=== PATIENT | male | born 1985 | race Caucasian/White ===

== ENCOUNTER 2017-03-05 06:47 | Emergency (ER) | payer BC ==
[~2017-03-05] VITALS: Ht 180.3 cm; Wt 81.6 kg
[2017-03-05 06:50] VITALS: BP_SYST 121
[2017-03-05] MEDS ORDERED: LEVO125T PO (06:57)
[2017-03-05] MEDS ORDERED: VITD2000 PO (06:58)
[2017-03-05] MEDS ORDERED: EZET10TA PO (06:58)
[2017-03-05] MEDS ORDERED: NACL 0.9% 1,000 ML IV ONE ×2 (07:03→09:45)
[2017-03-05] MEDS ORDERED: KETOROLAC TROMETHAMINE 30 MG VIAL IVP ONE (07:15)
[2017-03-05 07:23] LABS: BASOPHILS % (AUTO) 0.7 % (0.0-2.0); EOSINOPHILS # (AUTO) 0.1 K/uL (0.0-0.4); EOSINOPHILS % (AUTO) 2.4 % (0.0-4.0); HEMATOCRIT 43.1 % (36-54); HEMOGLOBIN 14.1 g/dL (14.0-18.0); LYMPHOCYTES # (AUTO) 3.1 K/uL (1.0-5.5); LYMPHOCYTES % (AUTO) 48.1 % (20.5-51.5); MEAN CORPUSCULAR HEMOGLOBIN 29 pg (27-31); MEAN CORPUSCULAR HGB CONC 33 % (32-36); MEAN CORPUSCULAR VOLUME 88 fL (79.0-98.0); MONOCYTES # (AUTO) 0.6 K/uL (0.0-1.0); MONOCYTES % (AUTO) 10.4 % (1.7-9.3); NEUTROPHILS # (AUTO) 2.3 K/uL (1.8-7.7); NEUTROPHILS % (AUTO) 38.4 % (40.0-70.0); PLATELET COUNT (AUTO) 311 K/uL (130-430); RED BLOOD CELL COUNT(AUTO) 4.91 MIL/uL (4.2-6.2); RED CELL DISTRIBUTION WIDTH 12.6 % (9.0-15.0); WHITE BLOOD COUNT (AUTO) 6.1 K/uL (4.8-10.8)
[2017-03-05] MEDS ORDERED: MORPHINE 2 MG/ML INJ. SYRINGE IVP ONE (07:30)
[2017-03-05] MEDS ORDERED: ONDANSETRON HCL 4 MG/2 ML VIAL IVP ONE (07:30)
[2017-03-05 07:39] LABS: PROTHROMBIN TIME 11.3 SECS (9.5-12.5)
[2017-03-05 07:48] LABS: CALCIUM 9.7 mg/dL (8.4-11.0); CREATININE 1.21 mg/dL (0.55-1.30); POTASSIUM 3.5 mmol/L (3.5-5.1)
[2017-03-05 07:53] LABS: ALBUMIN 4.2 g/dL (3.4-4.8); TOTAL BILIRUBIN 0.5 mg/dL (0.0-1.0); TOTAL PROTEIN, SERUM 7.5 g/dL (6.4-8.3)
[2017-03-05 08:07] LABS: BILIRUBIN,URINE NEGATIVE (NEGATIVE); BLOOD, URINE 3+ (NEGATIVE); CLARITY/URINE SL CLOUDY (CLEAR); COLOR,URINE YELLOW (YELLOW); GLUCOSE,URINE NEGATIVE (NEGATIVE); KETONES,URINE TRACE (NEGATIVE); LEUKOCYTE ESTERASE ,URINE NEGATIVE (NEGATIVE); NITRITE, URINE NEGATIVE (NEGATIVE); PROTEIN URINE NEGATIVE (NEGATIVE); UROBILINOGEN,URINE 0.2 (0.2-1.0)
[2017-03-05] MEDS ORDERED: MORPHINE 4 MG/ML INJ. SYRINGE IVP ONE (08:15)
[2017-03-05 08:23] LABS: RBC,URINE >100 /HPF (0-3); WBC,URINE 0-3 /HPF (0-3)
[2017-03-05 08:24] LABS: BACTERIA,URINE FEW /HPF (None Seen); MUCUS,URINE None Seen /LPF (None Seen)
[2017-03-05] MEDS ORDERED: MORPHINE SULFATE 10 MG/ML VIAL IVP ONE (09:00)
[2017-03-05] MEDS ORDERED: MAGNESIUM CITRATE 300 ML ORAL SOLUTION PO ONE (10:15)
[2017-03-05 10:46] VITALS: BP_SYST 126
== END 2017-03-05 10:46 | disposition home or self-care (01) ==
LOC: SED 06:47
DX: N20.1 Calculus of ureter (principal); R03.0 Elevated blood-pressure reading, without diagnosis of hypertension
CPT/HCPCS: 36415; 74176; 80053; 81000; 85025; 85610; 85730; 96361; 96374; 96375; 96376; 99285; J1885; J2270 ×3; J2405; J7030

== ENCOUNTER 2019-05-05 03:21 | Inpatient (IN) | payer BC ==
[2019-05-05] VITALS (7 sets, daily range): BP systolic 104–151
[~2019-05-05] VITALS: Ht 180.3 cm; Wt 81.6 kg
[~2019-05-05 03:21] MED LIST: EZET10TA PO; LEVO125T PO; VITD2000 PO
--- NOTE | 2019-05-05 03:42 | NUR ---
Pt came in with a complaint of right lower quadrant sharp abdominal pain. Denies nausea, headache, shortness of breath and no fever noted. Pt stated he took laxative for constpation but apparently it didnt work well for him. No medical history noted. Safety precaution observed, will continue to monitor pt.
--- NOTE | 2019-05-05 03:42 | NUR ---
Pt placed to bed 8, side rails up.
--- NOTE | 2019-05-05 04:00 | NUR ---
ER MD Mcmanus at bedside for medical evaluation.
[2019-05-05] MEDS ORDERED: NACL 0.9% 1,000 ML IV ONE (04:15)
[2019-05-05] MEDS ORDERED: MORPHINE 4 MG/ML INJ. SYRINGE IVP ONE (04:15)
--- NOTE | 2019-05-05 04:32 | NUR ---
Pt to CT
[2019-05-05 04:40] LABS: BASOPHILS % (AUTO) 0.3 % (0.0-2.0); EOSINOPHILS # (AUTO) 0.1 K/uL (0.0-0.4); EOSINOPHILS % (AUTO) 1.4 % (0.0-4.0); HEMATOCRIT 44.6 % (36-54); LYMPHOCYTES # (AUTO) 2.3 K/uL (1.0-5.5); LYMPHOCYTES % (AUTO) 27.2 % (20.5-51.5); MEAN CORPUSCULAR HEMOGLOBIN 30 pg (27-31); MEAN CORPUSCULAR HGB CONC 34 % (32-36); MEAN CORPUSCULAR VOLUME 89 fL (79.0-98.0); MONOCYTES # (AUTO) 0.8 K/uL (0.0-1.0); MONOCYTES % (AUTO) 9.5 % (1.7-9.3); NEUTROPHILS # (AUTO) 5.2 K/uL (1.8-7.7); NEUTROPHILS % (AUTO) 61.6 % (40.0-70.0); PLATELET COUNT (AUTO) 223 K/uL (130-430); RED BLOOD CELL COUNT(AUTO) 4.99 MIL/uL (4.2-6.2); RED CELL DISTRIBUTION WIDTH 13.5 % (9.0-15.0); WHITE BLOOD COUNT (AUTO) 8.4 K/uL (4.8-10.8)
--- NOTE | 2019-05-05 04:40 | NUR ---
Pt back from CT
[2019-05-05 04:50] LABS: CALCIUM 9.4 mg/dL (8.4-11.0); CREATININE 1.06 mg/dL (0.55-1.30); POTASSIUM 3.6 mmol/L (3.5-5.1)
[2019-05-05 04:56] LABS: ALBUMIN 3.9 g/dL (3.4-4.8); TOTAL BILIRUBIN 0.4 mg/dL (0.0-1.0)
[2019-05-05] MEDS ORDERED: PIPERACILLIN/TAZO 3.375 GM in NS 50 ML IV ONE (05:15)
[2019-05-05 05:18] LABS: BILIRUBIN,URINE NEGATIVE (NEGATIVE); BLOOD, URINE NEGATIVE (NEGATIVE); CLARITY/URINE CLEAR (CLEAR); COLOR,URINE YELLOW (YELLOW); GLUCOSE,URINE NEGATIVE (NEGATIVE); KETONES,URINE NEGATIVE (NEGATIVE); LEUKOCYTE ESTERASE ,URINE NEGATIVE (NEGATIVE); NITRITE, URINE NEGATIVE (NEGATIVE); PROTEIN URINE NEGATIVE (NEGATIVE); UROBILINOGEN,URINE 0.2 (0.2-1.0)
[2019-05-05] MEDS ORDERED: PIPERACILLIN/TAZOBACTAM 3.375 GM/VIAL (ZOSYN) IV ONE (05:24)
--- NOTE | 2019-05-05 05:30 | NUR ---
Pt in bed, no acute distress at this time. Will continue to monitor Pt.
[2019-05-05] MEDS ORDERED: MAGN100T3 PO (05:41)
--- NOTE | 2019-05-05 07:30 | NUR ---
Patient resting quietly. No acute distress noted. Vital signs within normal range.
[2019-05-05] MEDS ORDERED: fentaNYL CITRATE/PF 100 MCG/2 ML AMP IVP ONE (08:00)
[2019-05-05] MEDS ORDERED: NS IRRIG SOLN 1000 ML IR ONE (08:00)
[2019-05-05] MEDS ORDERED: MIDAZOLAM HCL 5 MG/5 ML VIAL IVP ONE (08:00)
[2019-05-05] MEDS ORDERED: SEVOFLURANE 15 MIN GAS INH ONE (08:00)
[2019-05-05] MEDS ORDERED: BUPIVACAINE /PF 0.5% 30 ML VIAL INJ ONE (08:00)
[2019-05-05] MEDS ORDERED: BUPIVACAINE /EPINEPHRINE/PF 0.25% 30 ML VIAL INJ ONE (08:00)
[2019-05-05] MEDS ORDERED: ROCURONIUM BROMIDE 10 MG/ML (ZEMURON) IV ONE (08:00)
[2019-05-05] MEDS ORDERED: LIDOCAINE/EPI 2% 1:100000 20 ML VIAL INJ ONE (08:00)
[2019-05-05] MEDS ORDERED: LR 1,000 ML IV.SOLN IV ONE (08:00)
[2019-05-05] MEDS ORDERED: GLYCOPYRROLATE 0.2 MG/ML VIAL IJ ONE (08:00)
[2019-05-05] MEDS ORDERED: PROPOFOL 200MG/ 20ML VIAL (DIPRIVAN) IV ONE (08:00)
[2019-05-05] MEDS ORDERED: NEOSTIGMINE METHYLSULFATE 1 MG/ML, 10 ML VIAL IVP ONE (08:00)
--- NOTE | 2019-05-05 08:00 | NUR ---
PT transferred via gurney to OR. PT was accompanied by two RN.
[2019-05-05 08:19] LABS: PROTHROMBIN TIME 10.3 SECS (9.5-12.5)
[2019-05-05] MEDS ORDERED: fentaNYL CITRATE/PF 100 MCG/2 ML AMP IVP PRN (08:45)
[2019-05-05] MEDS ORDERED: ONDANSETRON HCL 4 MG/2 ML VIAL IVP PRN ×2 (08:45→11:45)
[2019-05-05] MEDS ORDERED: KETOROLAC TROMETHAMINE 30 MG VIAL IVP PRN (08:45)
[2019-05-05] MEDS ORDERED: ONDANSETRON HCL 4 MG/2 ML VIAL ONE (09:47)
[2019-05-05] MEDS ORDERED: fentaNYL CITRATE/PF 100 MCG/2 ML AMP ONE (09:54)
--- NOTE | 2019-05-05 10:20 | NUR ---
Opening notes, Received pt from PACU, pt is drowsy but arousable to voice, spouse at bedside. c/o of pain 06/08, stated that he feels shitty after getting the pain medication in PACU. no bleeding on the surgical sites. dressing is clean/dry and intact. Pt able to do deep breathing, refused to do the Incentive Spirometry. Will check other medications to give. will cont to monitor.
--- NOTE | 2019-05-05 10:24 | NUR ---
Consult called: for Dr. Sarika Stinson, regarding medical management, ordered by Dr. Malone, spoke with Perlita.
--- NOTE | 2019-05-05 10:42 | NUR ---
Paged Dr SANDOVAL for pain meds order.
[2019-05-05] MEDS ORDERED: MORPHINE 4 MG/ML INJ. SYRINGE IVP PRN (11:45)
[2019-05-05] MEDS ORDERED: HYDROcodone/ACETAMIN 10-325 MG TAB PO PRN (11:45)
[2019-05-05] MEDS ORDERED: HYDROcodone/ACETAMIN 5-325 MG TAB (NORCO/ VICODIN) PO PRN (11:45)
[2019-05-05] MEDS ORDERED: MORPHINE 2 MG/ML INJ. SYRINGE IVP PRN (11:45)
[2019-05-05] MEDS ORDERED: ACETAMINOPHEN 325 MG TABLET PO PRN (11:45)
[2019-05-05] MEDS ORDERED: LORazepam 2 MG/ML VIAL IVP PRN (11:45)
[2019-05-05] MEDS: D5/0.45 NS 1,000 ML IV SCH ×2 (11:58→23:08)
--- NOTE | 2019-05-05 13:32 | NUR ---
PT IN BED, PT TALKING TO VISITOR AT BEDSIDE. STATED THAT HIS PAIN IS MUCH BETTER AT THIS TIME. WILL CONT TO MONITOR.
--- NOTE | 2019-05-05 16:34 | NUR ---
PT AMBULATED IN THE [address], PAIN IS TOLERABLE. PT VOIDED.
--- NOTE | 2019-05-05 18:12 | NUR ---
CLOSING NOTES PT HAS BEEN STABLE THE WHOLE SHIFT, VITALS WNL. NO FEVER. PT HAD GOOD PAIN RELIEF. PT AMBJULATED AND VOIDED POST SRGERY. WILL ENDORSED TO NIGHT RN.
--- NOTE | 2019-05-05 19:42 | NUR ---
OPENING NOTE Received patient awake, AOx4 in no sign of distress. Presently he is sitting upright in bed looking at personal lap top and talking with family visiting at bedside. IV is to LAC and has IVF infusing at 100 ml/hr. Nonlabored breathing on room air. Bed is locked to lowest position. Instructed on use of call light, updated board. He requested tooth brush and toiletries and they were provided.
--- NOTE | 2019-05-05 20:10 | NUR ---
Rounds / Incentive spirometer Patient is sitting on chair talking with visitors, no sign of distress noted. VSS - B/P is 122/80 and HR 60. Presently reports pain is tolerable and declines pain or nausea medication. He has been ambulating and tolerating clear liquids. He was instructed on use of incentive spirometer and demonstrated inspiration of 1000. IVF infusing as ordered. Will monitor.
--- NOTE | 2019-05-05 21:20 | NUR ---
Ambulating Patient ambulating in hallway with steady gait, accompanied by . He asked for new pair of socks for bed and they were provided. Will monitor.
--- NOTE | 2019-05-05 23:10 | NUR ---
IVF IVF bag is complete and hung new IV fluid bag as ordered. IVF infusing at 100 ml/ hr. Patient ambulated to the restroom and returned to bed. SCD's on and lights are off. He has no further needs. Will monitor.
[2019-05-06 01:15] VITALS: BP_SYST 137
--- NOTE | 2019-05-06 02:38 | NUR ---
Rounds Patient is sleeping, no sign of distress noted. IVF infusing well. Bed locked to lowest position and call light w/in reach. Will monitor.
--- NOTE | 2019-05-06 04:47 | NUR ---
Rounds Patient is sleeping, no sign of distress noted. Symmetrical rise and fall of chest. IVF infusing well. Bed locked to lowest position and call light w/in reach. Will monitor.
[2019-05-06 06:39] LABS: BASOPHILS % (AUTO) 0.2 % (0.0-2.0); EOSINOPHILS % (AUTO) 0.3 % (0.0-4.0); HEMATOCRIT 39.5 % (36-54); HEMOGLOBIN 13.4 g/dL (14.0-18.0); LYMPHOCYTES # (AUTO) 1.3 K/uL (1.0-5.5); LYMPHOCYTES % (AUTO) 18.7 % (20.5-51.5); MEAN CORPUSCULAR HEMOGLOBIN 30 pg (27-31); MEAN CORPUSCULAR HGB CONC 34 % (32-36); MEAN CORPUSCULAR VOLUME 88 fL (79.0-98.0); MONOCYTES # (AUTO) 0.8 K/uL (0.0-1.0); MONOCYTES % (AUTO) 10.8 % (1.7-9.3); PLATELET COUNT (AUTO) 202 K/uL (130-430); RED BLOOD CELL COUNT(AUTO) 4.46 MIL/uL (4.2-6.2); RED CELL DISTRIBUTION WIDTH 13.4 % (9.0-15.0); WHITE BLOOD COUNT (AUTO) 7.2 K/uL (4.8-10.8)
--- NOTE | 2019-05-06 06:48 | NUR ---
CLOSING NOTE Patient was given due medication. He denies nausea and was informed his diet was advanced to full liquid for breakfast. Presently reports pain as tolerable and declines any request for pain medication, he said he is avoid pain medication as much as possible. IVF infusing well. SCD's on. Needs met throughout shift. Will endorse care to oncoming nurse.
[2019-05-06 06:59] LABS: ALBUMIN 3.2 g/dL (3.4-4.8); CALCIUM 9.3 mg/dL (8.4-11.0); CREATININE 0.96 mg/dL (0.55-1.30); POTASSIUM 3.9 mmol/L (3.5-5.1); TOTAL BILIRUBIN 0.6 mg/dL (0.0-1.0)
[2019-05-06] MEDS ORDERED: LEVOTHYROXINE SODIUM 0.125 MG TABLET PO SCH (07:00)
[2019-05-06 07:22] LABS: ERYTHROCYTE SEDIMENTATION RATE 12 MM/HR (0-15)
--- NOTE | 2019-05-06 07:32 | NUR ---
OPENING NOTED Patient resting in the bed. No acute distress. AAO x 4. Denied of pain. Skin warm and dry to touch. IV intact to LAC, no redness, no swelling, no drainage. On D5 1/2NS at 100ml/hr, infusing well. On s/p lap appendectomy, abdomen incision sites x 3, covered with clean an dry dressing, no bleeding, no drainage, no odor. at bedside. Discussed the safety issue, use call light when needs help, and plan of care, verbally understanding. Safety measure maintained. Bed locked in low position, side rails up. Refused bed alarm, risk and benefit explained, verbally understanding. Call light within reached. Will continue to monitor.
[2019-05-06 07:55] VITALS: BP_SYST 128
--- NOTE | 2019-05-06 08:40 | NUR ---
SEEN AND EXAMINED BY MARY HARRIS WITH ORDER OF DISCHARGE HOME AND PRESCRIPTION OF NORCO.
[2019-05-06] MEDS ORDERED: HYDR-4272 PO ×2 (08:45→09:11)
[2019-05-06] MEDS ORDERED: CHOLECALCIFEROL (VITAMIN D3) 2,000 UNIT TABLET PO SCH (09:00)
[2019-05-06] MEDS ORDERED: EZETIMIBE 10 MG TABLET PO SCH (09:00)
--- NOTE | 2019-05-06 09:07 | NUR ---
SEEN AND EXAMINED BY SOCORRO AVILES.
[2019-05-06 09:10] VITALS: BP_SYST 123
--- NOTE | 2019-05-06 09:56 | NUR ---
Nutrition Update Kishan Scale 15 noted. Pt admitted for acute appendicitis. Diet: full liquid BMI: 25.1 kg/m2 RD to follow per nutrition care standards.
--- NOTE | 2019-05-06 10:05 | NUR ---
D/C Patient Patient given medication reconciliation form and D/C instructions. Exit Care provided. Patient verbalized understanding. MD discussed with patient the results and treatment provided. Ambulatory with steady gait for discharge to home. Patient in stable condition, ID band removed. IV catheter removed, intact and dressing applied, no active bleeding. Rx of [place] given. Patient educated on pain management, and follow up appointment. All belongings sent with patient.
== END 2019-05-06 10:05 | disposition home or self-care (01) | DRG 343 ==
LOC: SED 03:21 → SMU 08:00
PROVIDERS: ADMIT Surgery; ATTEND Surgery
PROC: 0DTJ4ZZ Resection of Appendix, Percutaneous Endoscopic Approach (ICD-10-PCS; principal; 2019-05-05 08:05)
DX: K35.80 Unspecified acute appendicitis (principal); K59.09 Other constipation; I25.10 Atherosclerotic heart disease of native coronary artery without angina pectoris; E03.9 Hypothyroidism, unspecified; E55.9 Vitamin D deficiency, unspecified; E88.09 Other disorders of plasma-protein metabolism, not elsewhere classified; Z88.8 Allergy status to other drugs, medicaments and biological substances; Z88.1 Allergy status to other antibiotic agents; Z79.899 Other long term (current) drug therapy; Z95.0 Presence of cardiac pacemaker
CPT/HCPCS: 36415; 71045; 80053; 81003; 83690-TC; 85025; 85610-TC; 85651-TC; 85730-TC; 86140; 86886; 86900; 86901; 87081; 88304; 96361; 96374; 99285; J2250; J2270; J2405; J2543; J2704; J2710; J3010; J3490; J7030; J7120